=== PATIENT | male | born 1965 | race Caucasian/White ===

== ENCOUNTER 2017-10-21 10:06 | Emergency (ER) | payer BC ==
--- NOTE | 2017-10-21 11:02 | EDM.PDOC ---
ED HPI GENERAL MEDICAL PROBLEM - General Chief Complaint: General Stated Complaint: PERSONAL Time Seen by Provider: 10/21/17 10:18 Source of Information: Reports: Patient History Limitations: Reports: No Limitations - History of Present Illness INITIAL COMMENTS - FREE TEXT/NARRATIVE: HISTORY AND PHYSICAL: History of present illness: Patient is a 52-year-old male who presents to the emergency room with complaints of foreign body in his urethra. Patient states that him and his were being intimate and he stuck a pin from a door hinge in his urethra. He states that "it sucked it right up" and he was unable to withdrawal the metal hinge. He states this happened 3 days ago. Since that time he has made multiple attempts to remove the in himself with pliers and hemostats, which she purchased at a hardware store. He has been able to void, states he has to really focus on urinating. Review of systems: As per history of present illness and below otherwise all systems reviewed and negative. Past medical history: As per history of present illness and as reviewed below otherwise noncontributory. Surgical history: As per history of present illness and as reviewed below otherwise noncontributory. Social history: No reported history of drug or alcohol abuse. Family history: As per history of present illness and as reviewed below otherwise noncontributory. Physical exam: Neuro: Well-developed and well-nourished. HEENT: Atraumatic, normocephalic, pupils reactive, negative for conjunctival pallor or scleral icterus, mucous membranes moist, throat clear, neck supple, nontender, trachea midline. Lungs: Clear to auscultation, breath sounds equal bilaterally, chest nontender. Heart: S1S2, regular, negative for clicks, rubs, or JVD. Abdomen: Soft, nondistended, nontender. Negative for masses or hepatosplenomegaly. Negative for costovertebral tenderness. Pelvis: Stable nontender. Genitourinary: Deferred. Rectal: Deferred. Extremities: Atraumatic, negative for cords or calf pain. Neurovascular unremarkable. Neuro: Awake, alert, oriented. Cranial nerves II through XII unremarkable. Cerebellum unremarkable. Motor and sensory unremarkable throughout. Exam nonfocal. 1125- Dr Baker, ([phone] - Cell) Urologist from [facility], was consulted on this case. 1140 - Consent was signed. Procedure was explained. Patient is agreeable and requesting we "do everything you can do get it out here). Topical and local lidocaine was used to anesthetize the area. Dr Head was involved in an extraction of his FB. Was unable to extract the FB successfully. Pt tolerated fair. Dr Baker was consulted and agrees that patient should be seen by him in [place]. Patient will be transfered via EMS. VSS. Patient is agreeable to transfer. Diagnostics: Pelvis Xray, [employer]: Topical Lidocaine, 1% Lidocaine, [place], Zofran Impression: Urethral Foreign Body Plan: Patient to [facility] in [place] to see Dr. Baker via ground EMS. Definitive disposition and diagnosis as appropriate pending reevaluation and review of above. Duration: Day(s): Location: Reports: Pelvis Bilateral Lower Pelvic Pain Score (Numeric/FACES): 9 - Related Data Allergies Allergy/AdvReac Type Severity Reaction Status Date / Time No Known Allergies Allergy Verified 10/21/17 10:43 Home Meds: Home Meds . [No Known Home Meds] 10/21/17 [History] Past Medical History - Past Health History Medical/Surgical History: Denies Medical/Surgical History Social & Family History - Family History Family Medical History: Noncontributory - Tobacco Use Smoking Status *Q: Current Every Day Smoker Years of Tobacco use: 40 Packs/Tins Daily: 1 Used Tobacco, but Quit: No Second Hand Smoke Exposure: Yes - Caffeine Use Caffeine Use: Reports: Coffee - Alcohol Use Days Per Week of Alcohol Use: 7 Number of Drinks Per Day: 4 Total Drinks Per Week: 28 - Recreational Drug Use Recreational Drug Use: No ED ROS GENERAL - Review of Systems Review Of Systems: ROS reveals no pertinent complaints other than HPI. ED EXAM, GENERAL - Physical Exam Exam: See Below (See dication) Course - Vital Signs Last Recorded V/S: Last Vital Signs Temp 98.1 F 10/21/17 10:43 Pulse 80 10/21/17 10:43 Resp 16 10/21/17 10:43 BP 134/82 10/21/17 10:43 Pulse Ox 95 10/21/17 10:43 - Orders/Labs/Meds Meds: Medications Discontinued Medications Generic Name Dose Route Start Last Admin Trade Name Freq PRN Reason Stop Dose Admin Hydrocodone Bitart/Acetaminophen 1 tab 10/21/17 12:19 [place] 325-5 Mg PO 10/21/17 12:20 ONETIME ONE Lidocaine HCl 2 ml 10/21/17 11:16 10/21/17 11:27 Xylocaine 2% Jelly MUCMEM 10/21/17 11:17 10 applicful NOW STA Administration Lidocaine HCl 20 ml 10/21/17 11:41 10/21/17 11:45 Xylocaine 1% INJECT 10/21/17 11:42 20 ml ONETIME ONE Administration Ondansetron HCl 4 mg 10/21/17 12:19 Zofran Odt PO 10/21/17 12:20 ONETIME ONE Departure - Departure Time of Disposition: 12:23 Disposition: DC/Tfer to Other 70 Clinical Impression: Urethral foreign body Qualifiers: Encounter type: initial encounter Qualified Code(s): T19.0XXA - Foreign body in urethra, initial encounter - Discharge Information Referrals: PCP,None [Primary Care Provider] - Forms: ED Department Discharge
[2017-10-21] MEDS ORDERED: Lidocaine 2% Jelly 30 ML Tube MUCMEM STA (11:16)
--- NOTE | 2017-10-21 11:34 | CR ---
EXAMINATION: Pelvis HISTORY: Foreign body COMPARISON: None TECHNIQUE: Single AP view FINDINGS: There is a metallic linear foreign body projecting over the penile region. Old healed mid r ight femur fracture noted. Bone mineralization otherwise appears normal. IMPRESSION: Metallic foreign body projecting over the penile region.
[2017-10-21] MEDS ORDERED: Lidocaine 1% 20 ML MDV INJECT ONE (11:41)
[2017-10-21] MEDS ORDERED: Ondansetron 4 MG Tab.DIS PO ONE (12:19)
[2017-10-21] MEDS ORDERED: Acetaminophen/HYDROcodone 325-5 MG Tab PO ONE (12:19)
[2017-10-21] MEDS ORDERED: Nicotine 21 MG/24 Hr Patch TRDERM ONE (12:32)
[2017-10-21] MEDS ORDERED: Nicotine 21 MG/24 Hr Patch ONE (12:35)
== END 2017-10-21 13:03 | disposition other institution (70) ==
LOC: MW.ED 10:06
DX: T19.0XXA Foreign body in urethra, initial encounter (principal); F17.210 Nicotine dependence, cigarettes, uncomplicated
CPT/HCPCS: 72170; 99284; A9270; 99283